=== PATIENT | male | born 1950 | race Caucasian/White ===

== ENCOUNTER → 2017-11-13 | Outpatient (CLI) | payer MEDICARE, BC ==
--- NOTE | 2017-11-13 17:05 | CARD ---
APPROVED REPORT EXAM Tilt Table S1S2, lungs CTA Attending Nurse: Christin Yao RN HISTORY The Patient is a 67 year-old male with a history of cough induced syncope INDICATIONS syncope PROCEDURE After explaining the risks, benefits, and alternative options, informed consent was obtained from the patient. Base - lineRhythm: Sinus TachycardiaHR: 104 bpmBP: 141/13euOyH5 Sat: 95 % Flat14:41Rhythm: Sinus TachycardiaHR: 108 bpmBP: 128/69lfEzQ5 Sat: 96 % Flat14:46Rhythm: Sinus TachycardiaHR: 104 bpmBP: 133/07ptPrO2 Sat: 96 % 80' Tilt14:51Rhythm: Sinus TachycardiaHR: 114 bpmBP: 153/79ftUiA9 Sat: 97 % 80' Tilt14:56Rhythm: Sinus TachycardiaHR: 110 bpmBP: 181/798emUyP5 Sat: 96 % 80' Tilt15:01Rhythm: Sinus TachycardiaHR: 113 bpmBP: 134/37oxUeC0 Sat: 97 % 80' Tilt15:06Rhythm: Sinus TachycardiaHR: 121 bpmBP: 131/66pzLfU2 Sat: 97 % 80' Tilt15:11Rhythm: Sinus TachycardiaHR: 111 bpmBP: 150/70ejLfU3 Sat: 98 % 80' Tilt15:16Rhythm: Sinus TachycardiaHR: 103 bpmBP: 116/91vcVtP6 Sat: 97 % 80' Tilt15:21Rhythm: Sinus TachycardiaHR: 118 bpmBP: 140/166nyQhZ0 Sat: 98 % 80' Tilt15:26Rhythm: Sinus TachycardiaHR: 117 bpmBP: 117/69bzSjM8 Sat: 97 % 80' Tilt15:32Rhythm: Sinus TachycardiaHR: 105 bpmBP: 115/40xpXxY5 Sat: 97 % :36Rhythm: Sinus TachycardiaHR: 111 bpmBP: 136/98mmHg COMPLICATIONS none CONCLUSION Normal tilt table study.
== END | disposition home or self-care (01) ==
LOC: EKG 13:18
PROVIDERS: ATTEND Internal Medicine Cardiovascular Disease
DX: R55 Syncope and collapse (principal); R05 Cough
CPT/HCPCS: 93660